=== PATIENT | male | born 1960 | race Caucasian/White ===

== ENCOUNTER 2017-01-21 05:46 | Inpatient (IN) | payer MEDICAID ==
[~2017-01-21] VITALS: Ht 185.4 cm; Wt 70.8 kg
[~2017-01-21 05:46] MED LIST: GABAPENTIN; Morphine; NORCO
[2017-01-21 05:48] VITALS: BP_SYST 165
[2017-01-21] MEDS ORDERED: ASPIRIN 81 MG TAB.CHEW PO ONE (06:00)
[2017-01-21] MEDS ORDERED: MORPHINE 4 MG/ML INJ. SYRINGE IVP ONE (06:00)
[2017-01-21] MEDS ORDERED: NITROGLYCERIN 1 INCH (GM) OINT. TP ONE (06:00)
[2017-01-21 06:59] LABS: BASOPHILS # (AUTO) 0.1 K/uL (0.0-0.2); BASOPHILS % (AUTO) 0.9 % (0.0-2.0); EOSINOPHILS # (AUTO) 0.3 K/uL (0.0-0.4); EOSINOPHILS % (AUTO) 4.2 % (0.0-4.0); HEMATOCRIT 41.6 % (36-54); HEMOGLOBIN 13.5 g/dL (14.0-18.0); LYMPHOCYTES # (AUTO) 1.6 K/uL (1.0-5.5); MEAN CORPUSCULAR HEMOGLOBIN 28 pg (27-31); MEAN CORPUSCULAR HGB CONC 33 % (32-36); MEAN CORPUSCULAR VOLUME 87 fL (79.0-98.0); MONOCYTES # (AUTO) 0.9 K/uL (0.0-1.0); MONOCYTES % (AUTO) 12.3 % (1.7-9.3); NEUTROPHILS # (AUTO) 4.1 K/uL (1.8-7.7); NEUTROPHILS % (AUTO) 59.6 % (40.0-70.0); PLATELET COUNT (AUTO) 233 K/uL (130-430); RED BLOOD CELL COUNT(AUTO) 4.77 MIL/uL (4.2-6.2); RED CELL DISTRIBUTION WIDTH 13.8 % (9.0-15.0)
[2017-01-21 07:30] LABS: CALCIUM 8.7 mg/dL (8.4-11.0); CREATININE 1.15 mg/dL (0.55-1.30); POTASSIUM 4.2 mmol/L (3.5-5.1)
[2017-01-21 07:31] LABS: TOTAL BILIRUBIN 0.4 mg/dL (0.0-1.0)
[2017-01-21 07:32] LABS: ALBUMIN 3.5 g/dL (3.4-4.8); TOTAL PROTEIN, SERUM 6.7 g/dL (6.4-8.3)
[2017-01-21] MEDS ORDERED: IOHEXOL 350 mgI/mL, 150 ML INFUS..BTL IV ONE (07:40)
[2017-01-21 09:43] VITALS: BP_SYST 136
[2017-01-21] MEDS ORDERED: IPRATROPIUM BROM 0.5 MG/2.5 ML VIAL.NEB (ATROVENT) INH PRN (10:30)
[2017-01-21] MEDS ORDERED: ALBUTEROL SULFATE 0.083% 2.5 MG/3 ML VIAL.NEB INH PRN (10:30)
[2017-01-21] MEDS ORDERED: ASPIRIN 325 MG TABLET (ECOTRIN) PO ONE (10:45)
[2017-01-21] MEDS: IPRATROPIUM BROM 0.5 MG/2.5 ML VIAL.NEB (ATROVENT) INH SCH ×4 (11:37→23:00)
[2017-01-21 11:38] VITALS: BP_SYST 136
[2017-01-21] MEDS: ALBUTEROL SULFATE 0.083% 2.5 MG/3 ML VIAL.NEB INH SCH ×4 (11:38→23:00)
[2017-01-21 16:00] VITALS: BP_SYST 138
[2017-01-21] MEDS ORDERED: LISINOPRIL 20 MG TABLET PO ONE (18:00)
[2017-01-21] MEDS ORDERED: ACETAMINOPHEN 325 MG TABLET PO PRN (19:30)
[2017-01-21 19:59] VITALS: BP_SYST 142
[2017-01-21] MEDS ORDERED: CARVEDILOL 6.25 MG TABLET (COREG) PO SCH (21:00)
[2017-01-21] MEDS ORDERED: FUROSEMIDE 40 MG/4 ML VIAL IVP SCH (21:00)
[2017-01-21 22:27] LABS: BARBITURATE, URINE NEGATIVE (NEG <=200); BENZODIAZEPINE, URINE NEGATIVE (NEG <=150); CANNABINOID, URINE NEGATIVE (NEG <=50); COCAINE, URINE NEGATIVE (NEG <=150); METHAMPHETAMINES SCREEN,URINE POSITIVE (NEG <=500); OPIATE, URINE POSITIVE (NEG <=100); PHENCYCLIDINE SCREEN,URINE NEGATIVE (NEG <=25); UR TRICYCLIC ANTIDEPRESSANTS NEGATIVE (NEG <=300); URINE AMPHETAMINE POSITIVE (NEG <=500); URINE METHADONE NEGATIVE (NEG <=200); URINE OXYCODONE SCREEN NEGATIVE (NEG <=100); URINE PROPOXYPHENE SCREEN NEGATIVE (NEG <=300)
[2017-01-22] VITALS (7 sets, daily range): BP systolic 120–137
[2017-01-22] MEDS: ALBUTEROL SULFATE 0.083% 2.5 MG/3 ML VIAL.NEB INH SCH ×3 (03:00→20:01)
[2017-01-22] MEDS: IPRATROPIUM BROM 0.5 MG/2.5 ML VIAL.NEB (ATROVENT) INH SCH ×3 (03:00→20:00)
[2017-01-22 06:47] LABS: INR 0.9 (0.80-1.20); PROTHROMBIN TIME 10.2 SECS (9.5-12.5)
[2017-01-22 06:50] LABS: BASOPHILS # (AUTO) 0.1 K/uL (0.0-0.2); BASOPHILS % (AUTO) 1.3 % (0.0-2.0); EOSINOPHILS # (AUTO) 0.4 K/uL (0.0-0.4); EOSINOPHILS % (AUTO) 7.9 % (0.0-4.0); HEMATOCRIT 42.2 % (36-54); HEMOGLOBIN 13.8 g/dL (14.0-18.0); LYMPHOCYTES # (AUTO) 1.6 K/uL (1.0-5.5); LYMPHOCYTES % (AUTO) 27.7 % (20.5-51.5); MEAN CORPUSCULAR HEMOGLOBIN 29 pg (27-31); MEAN CORPUSCULAR HGB CONC 33 % (32-36); MEAN CORPUSCULAR VOLUME 88 fL (79.0-98.0); MONOCYTES # (AUTO) 0.8 K/uL (0.0-1.0); MONOCYTES % (AUTO) 13.3 % (1.7-9.3); NEUTROPHILS # (AUTO) 2.8 K/uL (1.8-7.7); NEUTROPHILS % (AUTO) 49.8 % (40.0-70.0); PLATELET COUNT (AUTO) 268 K/uL (130-430); WHITE BLOOD COUNT (AUTO) 5.7 K/uL (4.8-10.8)
[2017-01-22 06:56] LABS: CALCIUM 8.4 mg/dL (8.4-11.0); CREATININE 1.17 mg/dL (0.55-1.30); POTASSIUM 4.4 mmol/L (3.5-5.1); TOTAL BILIRUBIN 0.4 mg/dL (0.0-1.0); TOTAL PROTEIN, SERUM 6.7 g/dL (6.4-8.3)
[2017-01-22 06:57] LABS: ALBUMIN 3.2 g/dL (3.4-4.8); THYROID STIMULATING HORMONE 1.9 uIu/mL (0.34-4.82)
[2017-01-22] MEDS: ASPIRIN 325 MG TABLET (ECOTRIN) PO SCH (09:43)
[2017-01-22] MEDS: LISINOPRIL 20 MG TABLET PO SCH (09:45)
[2017-01-22] MEDS: FUROSEMIDE 40 MG/4 ML VIAL IVP SCH (09:46)
[2017-01-22] MEDS: CARVEDILOL 6.25 MG TABLET (COREG) PO SCH ×2 (09:50→21:19)
[2017-01-23 00:24] VITALS: BP_SYST 128
[2017-01-23 04:11] VITALS: BP_SYST 107
[2017-01-23 06:26] LABS: CREATININE 1.28 mg/dL (0.55-1.30); POTASSIUM 4.2 mmol/L (3.5-5.1)
[2017-01-23] MEDS: IPRATROPIUM BROM 0.5 MG/2.5 ML VIAL.NEB (ATROVENT) INH SCH ×5 (07:00→23:10)
[2017-01-23] MEDS: ALBUTEROL SULFATE 0.083% 2.5 MG/3 ML VIAL.NEB INH SCH ×5 (07:00→23:10)
[2017-01-23 08:09] VITALS: BP_SYST 115
[2017-01-23] MEDS: FUROSEMIDE 40 MG/4 ML VIAL IVP SCH (08:19)
[2017-01-23] MEDS: CARVEDILOL 6.25 MG TABLET (COREG) PO SCH ×2 (08:20→20:55)
[2017-01-23] MEDS: ASPIRIN 325 MG TABLET (ECOTRIN) PO SCH (08:21)
[2017-01-23] MEDS: LISINOPRIL 20 MG TABLET PO SCH (08:21)
[2017-01-23] MEDS: FUROSEMIDE 40 MG TABLET PO SCH ×2 (09:00→21:54)
[2017-01-23 12:45] VITALS: BP_SYST 122
[2017-01-23 16:03] VITALS: BP_SYST 123
[2017-01-23 20:00] VITALS: BP_SYST 112
[2017-01-24 00:19] VITALS: BP_SYST 128
[2017-01-24] MEDS: ALBUTEROL SULFATE 0.083% 2.5 MG/3 ML VIAL.NEB INH SCH ×2 (03:00→07:26)
[2017-01-24] MEDS: IPRATROPIUM BROM 0.5 MG/2.5 ML VIAL.NEB (ATROVENT) INH SCH ×2 (03:00→07:25)
[2017-01-24 04:24] VITALS: BP_SYST 128
[2017-01-24 08:10] VITALS: BP_SYST 121
[2017-01-24] MEDS: LISINOPRIL 20 MG TABLET PO SCH (08:57)
[2017-01-24] MEDS: ASPIRIN 325 MG TABLET (ECOTRIN) PO SCH (08:58)
[2017-01-24] MEDS: CARVEDILOL 6.25 MG TABLET (COREG) PO SCH (08:58)
[2017-01-24] MEDS: FUROSEMIDE 40 MG TABLET PO SCH (08:59)
[2017-01-24] MEDS ORDERED: FURO-149 PO (10:10)
[2017-01-24] MEDS ORDERED: FURO-149 (10:10)
[2017-01-24] MEDS ORDERED: ASPI325T2 PO (10:11)
[2017-01-24] MEDS ORDERED: LISI-600 PO (10:11)
[2017-01-24] MEDS ORDERED: CARV12.548 PO (10:11)
[2017-01-24 10:15] VITALS: BP_SYST 121
== END 2017-01-24 10:30 | disposition home or self-care (01) | DRG 194 ==
LOC: SED 05:46 → STU 09:12 → SMU 01-24 09:31
PROVIDERS: ADMIT Internal Medicine Hospice and Palliative Medicine; ATTEND Internal Medicine Hospice and Palliative Medicine
DX: I11.0 Hypertensive heart disease with heart failure (principal); I42.0 Dilated cardiomyopathy; I50.43 Acute on chronic combined systolic (congestive) and diastolic (congestive) heart failure; F15.10 Other stimulant abuse, uncomplicated; F11.10 Opioid abuse, uncomplicated; F17.200 Nicotine dependence, unspecified, uncomplicated; Z80.9 Family history of malignant neoplasm, unspecified; Z85.820 Personal history of malignant melanoma of skin; Z92.3 Personal history of irradiation; Z92.21 Personal history of antineoplastic chemotherapy; Z71.51 Drug abuse counseling and surveillance of drug abuser; Z71.41 Alcohol abuse counseling and surveillance of alcoholic
CPT/HCPCS: 36415; 70450-TC; 71010; 71275; 80048; 80053; 80061; 80307; 83735-TC; 83880; 84443-TC; 84484; 85025; 85379; 85610-TC; 93005; 93306; 94640; 94760; 96374; 99285; J1940; J2270; Q9967

== ENCOUNTER 2017-08-22 13:16 | Emergency (ER) | payer MEDICAID ==
[~2017-08-22] VITALS: Ht 185.4 cm; Wt 74.8 kg
[~2017-08-22 13:16] MED LIST changes: +ASPI325T2 PO; +CARV12.548 PO; +FURO-149; +FURO-149 PO; -GABAPENTIN; +LISI-600 PO; -Morphine; -NORCO
[2017-08-22 13:20] VITALS: BP_SYST 164
[2017-08-22 14:37] LABS: BASOPHILS # (AUTO) 0.1 K/uL (0.0-0.2); BASOPHILS % (AUTO) 0.8 % (0.0-2.0); EOSINOPHILS # (AUTO) 0.1 K/uL (0.0-0.4); EOSINOPHILS % (AUTO) 1.9 % (0.0-4.0); LYMPHOCYTES # (AUTO) 1.4 K/uL (1.0-5.5); LYMPHOCYTES % (AUTO) 17.5 % (20.5-51.5); MEAN CORPUSCULAR HEMOGLOBIN 29 pg (27-31); MEAN CORPUSCULAR HGB CONC 33 % (32-36); MEAN CORPUSCULAR VOLUME 89 fL (79.0-98.0); MONOCYTES # (AUTO) 1.2 K/uL (0.0-1.0); MONOCYTES % (AUTO) 14.9 % (1.7-9.3); NEUTROPHILS % (AUTO) 64.9 % (40.0-70.0); PLATELET COUNT (AUTO) 303 K/uL (130-430); RED BLOOD CELL COUNT(AUTO) 4.85 MIL/uL (4.2-6.2); RED CELL DISTRIBUTION WIDTH 13.9 % (9.0-15.0); WHITE BLOOD COUNT (AUTO) 7.8 K/uL (4.8-10.8)
[2017-08-22 14:38] LABS: CALCIUM 10.1 mg/dL (8.4-11.0); CREATININE 1.39 mg/dL (0.55-1.30); POTASSIUM 4.7 mmol/L (3.5-5.1)
[2017-08-22 14:43] LABS: PROTHROMBIN TIME 9.7 SECS (9.5-12.5)
[2017-08-22 14:44] LABS: ALBUMIN 4.1 g/dL (3.4-4.8); TOTAL BILIRUBIN 0.8 mg/dL (0.0-1.0)
[2017-08-22 15:11] LABS: CKMB RELATIVE INDEX 1.5 (0.0-2.9); CREATINE KINASE MB 6.6 ng/mL (0-3.6)
[2017-08-22 15:15] VITALS: BP_SYST 155
== END 2017-08-22 15:15 ==
LOC: SED 13:16
DX: R07.89 Other chest pain (principal); F15.10 Other stimulant abuse, uncomplicated; R25.2 Cramp and spasm; I50.9 Heart failure, unspecified; Z85.820 Personal history of malignant melanoma of skin; Z79.82 Long term (current) use of aspirin
CPT/HCPCS: 36415; 71010; 80053; 82550-TC; 82553-TC; 83880; 84484; 85025; 85610-TC; 85730-TC; 93005; 99285